=== PATIENT | female | born 1935 | race Two or more races ===

== ENCOUNTER 2018-07-30 12:10 | Emergency (ER) | payer OTHER ==
[~2018-07-30] VITALS: Ht 162.6 cm; Wt 63.5 kg
[~2018-07-30 12:10] MED LIST: AVAPRO75 MG; DIABETA5 MG; JANUMET 50-1,1 UDTAB; NEURONTIN300 MG; PRILOSEC20 MG; VYTORIN 10/10 M1 TAB
== END 2018-07-30 14:29 | disposition home or self-care (01) ==
LOC: ER 12:10
DX: S70.02XA Contusion of left hip, initial encounter (principal); S80.02XA Contusion of left knee, initial encounter; S90.02XA Contusion of left ankle, initial encounter; S20.212A Contusion of left front wall of thorax, initial encounter; W01.198A Fall on same level from slipping, tripping and stumbling with subsequent striking against other object, initial encounter; Y93.89 Activity, other specified; Y92.238 Other place in hospital as the place of occurrence of the external cause; Y99.8 Other external cause status

== ENCOUNTER 2018-08-05 13:03 | Outpatient (CLI) | payer OTHER | END 2018-08-05 13:11 | disposition home or self-care (01) | LOC: TOM 13:03 | DX: M25.552 Pain in left hip (principal) ==

== ENCOUNTER 2018-09-09 13:37 | Outpatient (CLI) | payer OTHER | END 2018-09-09 13:43 | disposition home or self-care (01) | LOC: RAD 13:37 | DX: M25.552 Pain in left hip (principal) ==

== ENCOUNTER 2019-09-01 14:17 | Outpatient (CLI) | payer OTHER | END 2019-09-01 14:18 | disposition home or self-care (01) | LOC: RAD 14:17 | DX: M50.20 Other cervical disc displacement, unspecified cervical region (principal); M50.21 Other cervical disc displacement, high cervical region; M50.223 Other cervical disc displacement at C6-C7 level ==

== ENCOUNTER 2020-01-02 14:16 | Outpatient (CLI) | payer OTHER | END 2020-01-02 14:26 | disposition home or self-care (01) | LOC: RAD 14:16 | PROVIDERS: ATTEND Physical Medicine & Rehabilitation | DX: M13.811 Other specified arthritis, right shoulder (principal); M13.812 Other specified arthritis, left shoulder ==

== ENCOUNTER → 2020-01-21 | Outpatient (CLI) | payer OTHER | END | disposition home or self-care (01) | LOC: SONOGRAMA 12:04 | PROVIDERS: ATTEND Physical Medicine & Rehabilitation | DX: M75.102 Unspecified rotator cuff tear or rupture of left shoulder, not specified as traumatic (principal); M75.101 Unspecified rotator cuff tear or rupture of right shoulder, not specified as traumatic ==

== ENCOUNTER 2021-10-07 11:14 | Outpatient (CLI) | payer OTHER | END 2021-10-07 11:17 | disposition home or self-care (01) | LOC: SONOGRAMA 11:14 | PROVIDERS: ATTEND Internal Medicine Endocrinology, Diabetes & Metabolism | DX: N02.9 Recurrent and persistent hematuria with unspecified morphologic changes (principal); E11.21 Type 2 diabetes mellitus with diabetic nephropathy; N18.30 Chronic kidney disease, stage 3 unspecified ==

== ENCOUNTER 2022-08-04 13:53 | Outpatient (CLI) | payer OTHER | END 2022-08-04 14:00 | disposition home or self-care (01) | LOC: RAD 13:53 | PROVIDERS: ATTEND Internal Medicine Endocrinology, Diabetes & Metabolism | DX: M54.50 Low back pain, unspecified (principal); M25.552 Pain in left hip; S72.002A Fracture of unspecified part of neck of left femur, initial encounter for closed fracture ==

== ENCOUNTER 2022-09-20 13:56 | Outpatient (CLI) | payer OTHER | END 2022-09-20 14:03 | disposition home or self-care (01) | LOC: MRI 13:56 | PROVIDERS: ATTEND Orthopaedic Surgery | DX: M23.91 Unspecified internal derangement of right knee (principal) | CPT/HCPCS: 73718 ==